=== PATIENT | male | born 1975 | race Caucasian/White ===

== ENCOUNTER 2017-06-22 07:17 | Day surgery (SDC) | payer OTHER ==
[2017-06-15 16:22] VITALS: BMI 28.3
[2017-06-22] MEDS ORDERED: DEXAMETHASONE SOD PHOSPHATE/PF 10 MG/ML SDV ONE (08:21)
[2017-06-22] MEDS ORDERED: ROPIVACAINE HCL 0.5% 30ML VIAL ONE (08:21)
[2017-06-22] MEDS ORDERED: MIDAZOLAM HCL 2 MG/2 ML SINGLE DOSE VIAL ONE (08:21)
[2017-06-22] MEDS ORDERED: PROPOFOL 20 ML ONE ×4 (09:07→10:53)
[2017-06-22] MEDS ORDERED: SUCCINYLCHOLINE CHLORIDE 200 MG/10 ML VIAL ONE (09:08)
[2017-06-22] MEDS ORDERED: ceFAZolin SODIUM 1 GM VIAL ONE (09:20)
[2017-06-22] MEDS ORDERED: DEXAMETHASONE SOD PHOSPHATE 4 MG/1 ML VIAL ONE (09:31)
[2017-06-22] MEDS ORDERED: ONDANSETRON 4 MG/2 ML VIAL ONE (09:31)
[2017-06-22] MEDS ORDERED: ePHEDrine SULFATE 50 MG/1 ML AMPULE ONE (09:46)
[2017-06-22] MEDS ORDERED: GLYCOPYRROLATE 0.2 MG/1 ML VIAL ONE (09:47)
--- NOTE | 2017-06-22 11:33 | OP ---
Operative Note - Note: Operative Date: 06/22/17 Pre-Operative Diagnosis: left shoulder paralabral cyst and likely labral tear, acromioclavicular arthritis Operation: left shoulder labral repair, subacromial decompression, distal clavicle excision Implants: arthrex pushlock x1 Post-Operative Diagnosis: Same as Pre-op Surgeon: Mat Saavedra Anesthesia: General, Fractional Estimated Blood Loss (mls): 20 Operative Report Dictated: Yes
--- NOTE | 2017-06-22 12:21 | OP ---
DATE OF OPERATION: 06/22/2017 PREOPERATIVE DIAGNOSIS: Left shoulder paralabral cyst, likely labral tear, acromioclavicular osteoarthritis. PREOPERATIVE DIAGNOSIS: Left shoulder paralabral cyst, likely labral tear, acromioclavicular osteoarthritis, subacromial bursitis. PROCEDURE: Left shoulder arthroscopy, posterior superior labral repair with decompression of cyst, subacromial decompression, distal clavicle resection. SURGEON: Mat Saavedra MD AURIST: JOE Richardson, the skillful assistance was necessary for the safe and timely performance of this procedure. Mr. Bennett was able to help provide limb positioning, drive the camera, assist in the passage of sutures, assist in the insertion of orthopedic fixation hardware. ANESTHESIA: Regional plus general. POSTOPERATIVE CONDITION: Stable. COMPLICATIONS: None. IMPLANTS: Arthrex PushLock x1. INDICATIONS: This is a pleasant 41-year-old gentleman who had been experiencing persistent shoulder pain for the better course of a year. He was treated conservatively with therapy, injections, medications, and failed to improve. MRI demonstrated paralabral cyst without definite labral tear. It also demonstrated acromioclavicular osteoarthritis. Treatment options including nonoperative versus operative management were reviewed. Operative risks were reviewed in detail including bleeding, infection, neurovascular injury, need for further surgery, postoperative pain, and stiffness, recurrent osteoarthritis, progression of glenohumeral osteoarthritis, persistent cyst formation. We discussed the lengthy recovery from the surgery. We reviewed medical risks such as hard attack, stroke, DVT, PE, and . We answered all the patient's questions and concerns. He voiced understanding and elected to proceed. PROCEDURE: The patient was brought to the operating room after administration of a regional block in the preoperative holding area. He was placed in the beach chair position while awake, careful to pad all the bony prominences. The left upper extremity was then prepped and draped in the usual sterile fashion. A preoperative dose of antibiotics was given, and the usual timeout procedure was performed. The shoulder was passed through a range of motion and found to have no limitations. There was no gross instability noted. At this point, posterior viewing portal was established using an 11-blade. The arthroscope was passed into the glenohumeral joint. Examination of the glenohumeral joint demonstrated some slight synovitis. An anterior portal was now established under spinal needle localization. The joint was examined. Examination of the anterior labrum demonstrated no bryanna tearing. Passing the arthroscope down to the inferior labrum demonstrated no tearing as well. There was minimal glenohumeral degenerative change. Passing the arthroscope up along the posterior border of the glenoid demonstrated that there was a significant amount of fraying in the posterior superior labrum and instability in this region as well. Probing identified a small tear on the undersurface of the labrum. Utilizing the shaver as well as the elevator and the rasp, the undersurface of the labrum and glenoid bed were prepared for repair. The elevator was slid back along the glenoid neck to ensure any deep cyst was decompressed. The cannulas were now placed in the anterior and posterior. Utilizing a 90-degree suture lasso, a single stitch was passed through the site of the tear. A percutaneous technique was then used to drill a hole for a knotless anchor. The sutures were retrieved out through the cannula. The anchor was then inserted, again using percutaneous technique, securing down the labrum. The labrum was now probed and found to be stable. To avoid any excessive stiffness, only 1 anchor was used. The rotator cuff also had been inspected in the joints demonstrating no tears of the subscapularis, supraspinatus, or infraspinatus. The biceps tendon appeared unremarkable. The arthroscope now was withdrawn from the glenohumeral space and passed through the subacromial space. A beefy red bursitis was noted. A lateral portal was established, and subacromial bursectomy was performed. There was some prominence at the anterior acromion. Dissection was carried out using electrocautery towards the acromioclavicular joint. The inferior surface of the joint was exposed. Utilizing a bur, this was then coplaned to remove any osteophyte from both the acromial and clavicular sides. The distal edge of the clavicle was then resected by approximately 1 cm. Utilizing the anterior portal , resection was confirmed to be satisfactory. The anterior osteophyte on the acromion was also smoothed down to flat surface. At this point, the excess fluid was withdrawn from the joint. The portals were sutured using 3-0 nylon. The patient was extubated. He was placed into a sling. He was transferred to recovery room in stable condition. Will [id number] MTDD
[2017-06-22 13:48] VITALS: TEMP 97.5
[2017-06-22 13:51] VITALS: BP 137/84; PULSE 86
--- NOTE | 2017-06-26 11:10 | PATH ---
Surgical Pathology Report Patient Name: TACHO EDMOND [facility]. Rec. #: [id number] /Age/Gender: 1975 (Age: 41) / M Account: [id number] Location: [facility] AMBULATORY Taken: 06/22/2017 Received: 06/22/2017 Reported: 06/26/2017 Physicians: Mat Saavedra M.D. Specimen(s) Received LEFT SHOULDER SHAVINGS Clinical History Left shoulder impingement Final Diagnosis SHOULDER SHAVINGS, LEFT, ARTHROSCOPY WITH LABRAL DEBRIDEMENT: FRAGMENTS OF BENIGN CARTILAGE, DENSE FIBROCONNECTIVE TISSUE, ADIPOSE TISSUE, AND SKELETAL MUSCLE. Electronically Signed Aaliyah Altamirano M.D. Gross Description Received in formalin labeled "left shoulder shavings," is a 2.0 x 1.5 x 0.3 cm aggregate of hawkins-yellow soft tissue fragments. The formalin is filtered and the specimen is entirely submitted in one cassette. 06/23/2017 saudi06/23/2017
== END 2017-06-22 13:15 | disposition home or self-care (01) ==
LOC: FASU 07:17
PROVIDERS: ATTEND Orthopaedic Surgery Sports Medicine
PROC: 0RBK4ZZ Excision of Left Shoulder Joint, Percutaneous Endoscopic Approach (ICD-10-PCS; 2017-06-22)
PROC: 0PBB4ZZ Excision of Left Clavicle, Percutaneous Endoscopic Approach (ICD-10-PCS; principal; 2017-06-22 09:37)
DX: S43.432A Superior glenoid labrum lesion of left shoulder, initial encounter (principal); M19.012 Primary osteoarthritis, left shoulder; M75.52 Bursitis of left shoulder; X58.XXXA Exposure to other specified factors, initial encounter; Y93.89 Activity, other specified; Y92.89 Other specified places as the place of occurrence of the external cause
CPT/HCPCS: 88304-TC; 94760